=== PATIENT | female | born 1975 | race Caucasian/White ===

== ENCOUNTER 2018-06-26 12:27 | Emergency (ER) | payer SELFPAY ==
[~2018-06-26] VITALS: Ht 157.5 cm; Wt 65.0 kg
[2018-06-26 12:56] VITALS: BP 131/76
[2018-06-26] MEDS ORDERED: ACETAMINOPHEN 325MG TABLET PO ONE (13:15)
== END 2018-06-26 16:22 | disposition home or self-care (01) ==
LOC: ER 12:27
DX: H65.92 Unspecified nonsuppurative otitis media, left ear (principal); J40 Bronchitis, not specified as acute or chronic
CPT/HCPCS: 71045; 81025; 99283

== ENCOUNTER 2018-07-10 12:28 | Emergency (ER) | payer OTHER ==
[~2018-07-10] VITALS: Ht 157.5 cm; Wt 66.0 kg
[2018-07-10 13:01] VITALS: BP 142/82
[2018-07-10] MEDS ORDERED: VISCOUS LIDOCAINE 2% 15 ML UDC MM PRN (13:30)
[2018-07-10] MEDS ORDERED: LIDOCAINE HCL 1% 20ML VIAL (Pyxis) INJ INFIL ONE (14:30)
[2018-07-10] MEDS ORDERED: PENICILLIN G BENZATHINE 1,200,000 UNITS/2ML SYR IM ONE (14:30)
== END 2018-07-10 15:10 | disposition home or self-care (01) ==
LOC: ER 12:28
DX: J02.9 Acute pharyngitis, unspecified (principal); E03.9 Hypothyroidism, unspecified
CPT/HCPCS: 87430; 96372; 99283; J0561; J3490